=== PATIENT | female | born 1935 | race Caucasian/White ===

== ENCOUNTER 2022-09-09 15:51 | Inpatient (IN) ==
[2022-09-09] MEDS ORDERED: ceFAZolin 2,000 MG in 0.9 % Sodium Chloride 100 ML IVPB ONE (16:41)
[2022-09-09] MEDS ORDERED: Acetaminophen IV 1,000 MG/100 ML BAG IVPB ONE (16:42)
[2022-09-09] MEDS ORDERED: Tdap (Boostrix) Vaccine 0.5 ML SYRINGE IM ONE (16:45)
[2022-09-09] MEDS ORDERED: Iopamidol - 370 500 ML MLS IVP ONE (16:45)
[2022-09-09] MEDS ORDERED: 0.9 % Sodium Chloride 1,000 ML IVC ONE (16:49)
[2022-09-09 19:24] LABS: Basophils % 0.1 %; Eosinophils % 0.1 %; Hematocrit 37.4 % (35.3-44.9); Hemoglobin 11.3 g/dL (11.5-15.4); Immature Granulocytes % 0.5 % (0-4); Lymphocytes # 1.4 K/mcL (0.6-4.6); Lymphocytes % 9.2 %; Mean Corpuscular HGB Conc 30.2 g/dL (31.6-35.5); Mean Corpuscular Hemoglobin 26.3 pg (28.0-33.3); Mean Corpuscular Volume 87.2 fL (83.0-100.0); Monocytes # 0.8 K/mcL (0.0-1.3); Monocytes % 5.5 %; Neutrophils # 12.5 K/mcL (1.6-8.9); Platelet Count 146 K/mcL (140-400); Red Blood Count 4.29 M/mcL (3.82-4.97); Red Cell Distribution Width 15.5 % (11.5-14.5); Segmented Neutrophils % 84.6 %; White Blood Count 14.8 K/mcL (4.3-11.1)
[2022-09-09 19:28] LABS: INR 1.2; Prothrombin Time 13.4 Seconds (9.4-12.1)
[2022-09-09 19:44] LABS: BUN/Creatinine Ratio 15 (6-26); Blood Urea Nitrogen 13 mg/dL (8-23); Calcium 8.8 mg/dL (8.6-10.3); Carbon Dioxide 24 mEq/L (23-29); Chloride 104 mEq/L (98-107); Glucose 120 mg/dL (70-105); Osmolality,Calculated 287 (280-300); Potassium 3.8 mEq/L (3.5-5.1); Sodium 138 mEq/L (136-145); Troponin I < 0.03 ng/mL (< 0.04)
[2022-09-09] MEDS ORDERED: Naloxone 0.4 MG/ML INJ IVP PRN (20:28)
[2022-09-09] MEDS ORDERED: Ondansetron 4 MG/2 ML VIAL IVP PRN (20:28)
[2022-09-09] MEDS ORDERED: Dextrose Gel 15 GM/37.5 ML TUBE PO PRN ×2 (21:34)
[2022-09-09] MEDS ORDERED: D5% in Water 1,000 ML IVC PRN (21:34)
[2022-09-09] MEDS ORDERED: *HR* Dextrose 50 % in Water (Syg) 50 ML SYRINGE IVP PRN (21:34)
[2022-09-10] MEDS: ceFAZolin 2,000 MG in 0.9 % Sodium Chloride 100 ML IVPB SCH ×4 (01:04→23:23)
[2022-09-10 01:38] LABS: Bilirubin,Urine Negative (Negative); Blood,Urine Negative (Negative); Clarity,Urine Clear (Clear); Color,Urine Light-Yellow (Yellow); Glucose,Urine (UA) Normal (Normal); Ketones,Urine Negative (Negative); Leukocyte Esterase,Urine Negative (Negative); Nitrite,Urine Negative (Negative); Protein,Urine Negative (Neg-Trace); Specific Gravity,Urine > 1.030 (1.010-1.025); Urobilinogen,Urine Normal (Normal)
[2022-09-10 06:27] LABS: Hematocrit 36.5 % (35.3-44.9); Mean Corpuscular HGB Conc 30.1 g/dL (31.6-35.5); Mean Corpuscular Hemoglobin 26.3 pg (28.0-33.3); Mean Corpuscular Volume 87.1 fL (83.0-100.0); Mean Platelet Volume 11.5 fL (9.4-12.4); Platelet Count 169 K/mcL (140-400); Red Blood Count 4.19 M/mcL (3.82-4.97); Red Cell Distribution Width 15.6 % (11.5-14.5); White Blood Count 9.9 K/mcL (4.3-11.1)
[2022-09-10 06:35] LABS: Heparin anti-factor XA UFH < 0.04 IU/mL (0.30-0.70)
[2022-09-10 06:36] LABS: INR 1.1; Prothrombin Time 12.3 Seconds (9.4-12.1)
[2022-09-10 06:38] LABS: Activated Partial Thrombo Time 28.1 Seconds (26.0-36.0)
[2022-09-10 06:50] LABS: Calcium 8.6 mg/dL (8.6-10.3); Chol/HDL Ratio 2.7 (0-4.9); Magnesium 1.7 mg/dL (1.6-2.6); Phosphorous 3.4 mg/dL (2.7-4.5)
[2022-09-10] MEDS ORDERED: Ropivacaine/PF 0.5% 30 ML VIAL ONE (13:26)
[2022-09-10] MEDS ORDERED: *HR* Midazolam HCl 2 MG/2 ML VIAL ONE (13:26)
[2022-09-10] MEDS ORDERED: *HR* FentaNYL (PF) 100 MCG/2 ML VIAL ONE (13:26)
[2022-09-10] MEDS ORDERED: Lidocaine -MPF 2% 2 ML VIAL ONE (13:48)
[2022-09-10] MEDS ORDERED: *HR* Metoprolol 5 MG/5 ML VIAL IVP PRN (13:59)
[2022-09-10] MEDS ORDERED: *HR* Labetalol 20 MG/4 ML SYRINGE IVP PRN (13:59)
[2022-09-10] MEDS ORDERED: *HR* OxyCODONE Immed Rel 5 MG TABLET PO PRN (13:59)
[2022-09-10] MEDS ORDERED: Albuterol 2.5 MG/3 ML NEBULIZER IH PRN (13:59)
[2022-09-10] MEDS ORDERED: Ipratropium Neb 0.5 MG NEBULIZER IH PRN (13:59)
[2022-09-10] MEDS ORDERED: *HR* HYDROmorphone PF 0.5 MG/0.5 ML SYRINGE IVP PRN (13:59)
[2022-09-10] MEDS ORDERED: Ondansetron 4 MG/2 ML VIAL IVP PRN (13:59)
[2022-09-10] MEDS ORDERED: Acetaminophen IV 1,000 MG/100 ML BAG IVPB PRN (13:59)
[2022-09-10] MEDS: *HR* Metoprolol 5 MG/5 ML VIAL IVP SCH ×2 (14:39→14:45)
[2022-09-10] MEDS ORDERED: Bacitracin OINT PKT TP ONE (15:34)
[2022-09-10] MEDS ORDERED: Ondansetron 4 MG/2 ML VIAL ONE (15:58)
[2022-09-10] MEDS: hydrALAZINE 10 MG TABLET PO SCH ×2 (19:25→21:01)
[2022-09-10] MEDS: clonazePAM 0.5 MG TABLET PO SCH ×2 (19:26→21:01)
[2022-09-10] MEDS: cloNIDine HCL 0.1 MG TABLET PO SCH (21:01)
[2022-09-10] MEDS ORDERED: 0.9 % Sodium Chloride 500 ML IVC ONE (23:16)
[2022-09-11] MEDS ORDERED: 0.9 % Sodium Chloride 500 ML IVC ONE (00:40)
[2022-09-11] MEDS: *HR* Metoprolol 5 MG/5 ML VIAL IVP SCH (01:12)
[2022-09-11] MEDS: hydrALAZINE 10 MG TABLET PO SCH ×2 (08:48→15:00)
[2022-09-11] MEDS: clonazePAM 0.5 MG TABLET PO SCH ×2 (08:49→15:00)
[2022-09-11] MEDS: cloNIDine HCL 0.1 MG TABLET PO SCH (08:50)
[2022-09-11] MEDS: ceFAZolin 2,000 MG in 0.9 % Sodium Chloride 100 ML IVPB SCH ×2 (08:50→16:34)
[2022-09-11] MEDS ORDERED: Apixaban 5 MG TABLET PO SCH (09:00)
[2022-09-11] MEDS ORDERED: DilTIAZem CD (24hr) 120 MG CAP.ER.24H PO SCH ×2 (09:00)
[2022-09-11 11:09] LABS: Basophils % 0.2 %; Hematocrit 32.7 % (35.3-44.9); Hemoglobin 9.8 g/dL (11.5-15.4); Immature Granulocytes % 0.3 % (0-4); Lymphocytes # 1.2 K/mcL (0.6-4.6); Lymphocytes % 10.1 %; Mean Corpuscular Hemoglobin 26.3 pg (28.0-33.3); Mean Corpuscular Volume 87.7 fL (83.0-100.0); Mean Platelet Volume 10.7 fL (9.4-12.4); Monocytes # 1.3 K/mcL (0.0-1.3); Neutrophils # 9.5 K/mcL (1.6-8.9); Platelet Count 197 K/mcL (140-400); Red Blood Count 3.73 M/mcL (3.82-4.97); Red Cell Distribution Width 15.6 % (11.5-14.5); Segmented Neutrophils % 78.4 %; White Blood Count 12.1 K/mcL (4.3-11.1)
[2022-09-11 11:24] VITALS: PULSE 66; TEMP 97.8; O2SAT 98
[2022-09-11 11:33] LABS: Magnesium 1.5 mg/dL (1.6-2.6); Phosphorous 2.8 mg/dL (2.7-4.5); Potassium 3.9 mEq/L (3.5-5.1)
[2022-09-11 14:25] VITALS: BP 100/74
== END 2022-09-11 19:05 | disposition home or self-care (01) | DRG 512 ==
LOC: EMEROOARM 15:51 → 4WAOSI 15:51 → SUATTDRO 20:40 → 4WAOSI 21:45
PROVIDERS: ADMIT Internal Medicine; ATTEND Internal Medicine